=== PATIENT | male | born 1950 | race Hispanic/Latino ===

== ENCOUNTER 2016-08-26 07:56 | Day surgery (SDC) | payer MEDICARE ==
[2016-08-20 08:28] VITALS: BMI 28.7
[2016-08-26] MEDS ORDERED: Bupivacaine 0.5% Inj(30mL) ONE (08:52)
[2016-08-26 09:04] VITALS: RESP 18
[2016-08-26] MEDS ORDERED: Midazolam 2 MG/2 ML VIAL ONE (10:12)
[2016-08-26] MEDS ORDERED: Propofol 10 mg/ml Inj (20 ML) ONE (10:12)
[2016-08-26] MEDS ORDERED: ePHEDrine 50 mg/ml Inj ONE (10:12)
[2016-08-26] MEDS ORDERED: HYDROmorphone 0.5 mg/0.5 ml ISec IVP PRN (11:34)
[2016-08-26] MEDS ORDERED: Lactated Ringer's 1,000 ML IV SCH (11:34)
--- NOTE | 2016-08-26 12:15 | PCM.SURG1 ---
Surgeon's Initial Post Op Note - Surgeon's Notes Surgeon: Dr. Virk Electrical Automation Engineer: Dr. Bella Type of Anesthesia: General LMA, Local Pre-Operative Diagnosis: left inguinal hernia Operative Findings: see operative report Post-Operative Diagnosis: left inguinal hernia Operation Performed: left inguinal hernia repair with mesh, left ilioinguinal neurectomy Specimen/Specimens Removed: cord lipoma, nerve segment Estimated Blood Loss: EBL {In ML}: 10 Blood Products Given: N/A Drains Used: No Drains Post-Op Condition: Good Date of Surgery/Procedure: 08/26/16 Time of Surgery/Procedure: 12:14
[2016-08-26] MEDS ORDERED: Albuterol HFA 90 mcg/actuation (8 g) ONE (12:43)
[2016-08-26 13:37] VITALS: TEMP 97.7
[2016-08-26 14:10] VITALS: BP 158/72; PULSE 68; O2SAT 99
--- NOTE | 2016-08-26 14:59 | OP ---
PROCEDURE DATE: 08/26/2016 PREOPERATIVE DIAGNOSES: Left inguinal hernia, left groin pain extending to the left thigh. POSTOPERATIVE DIAGNOSES: Left inguinal hernia, left groin pain extending to the left thigh and entra pped left ilioinguinal nerve. SURGEON: Dr. Virk FERRYBOAT TICKET TAKER: Dr. Bella ANESTHESIOLOGIST: Dr. Rodriguez ANESTHESIA: General LMA. ESTIMATED BLOOD LOSS: Minimal. PROCEDURES PERFORMED: 1. Left inguinal hernia repair with mesh. 2. Left ilioinguinal neurectomy. The patient is a 66-year-old male with history of left groin bulge associated with tenderness and dis comfort. He was examined and was noted to have a left inguinal hernia as well as small right inguina l hernia and was scheduled for the repair of the left inguinal hernia due to the pain extending into his left thigh. The patient was brought to the operating room and placed on the operating table in a supine position. The patient was connected to EKG, blood pressure and pulse oximeter monitors. The patient then und erwent general LMA anesthesia and was prepped and draped in the usual sterile fashion. First, standard timeout proceeded took place and everybody in the room agreed as to the patient's mo ntity, diagnosis and procedure to be performed. Using lidocaine mixed with Marcaine, the area of incision was infiltrated and a skin incision was mad e using a #15 blade. Once the incision was carried through the subcutaneous tissue, I then carefully dissected out using electrocautery. External oblique aponeurosis was exposed and incised along its fibers using a #15 blade. The spermatic cord with its structures were then carefully elevated off it s floor and were noted to have a large cord lipoma as well as a hernia sac. This was carefully disse cted out. The cord lipoma was ligated at its base and excised and sent as a specimen. The hernia ap peared to contain small bowel with some adhesions within the hernia. Therefore, a decision was made to proceed with reduction of the hernia into the abdominal cavity without resecting the sac. The sac itself was incised and reduced slightly while being closed. Once this was completed, the internal r ing of the inguinal canal carefully dissected out and preperitoneal space was mobilized. PHS hernia mesh was placed into the internal ring defect and the posterior leaf was placed in the preperitoneal space and the anterior leaf of the mesh was then placed flatly on the floor of the inguinal canal ext ending from the pubic tubercle down to behind the exit site of the spermatic cord. During the dissec tion of the cord structures, the ilioinguinal nerve, which was lying on top of the cord and was incor porated into the scar tissue extending around the cord structures itself, had to be sacrificed in ord er to avoid postoperative neuralgia. The ilioinguinal nerve was then clamped proximal and distally a nd the middle portion of it was sent as a specimen. Now, the plug was sutured to the edges of the tr ansversalis fascia and inguinal ligament using 0 Vicryl stitches. The external oblique aponeurosis w as sutured together using 3-0 Vicryl and 60 mg total with a mixture of lidocaine and Marcaine were in jected in the area of the distal aspect laterally to the exit site of the spermatic cord in order to give better anesthesia. Once this was done, the Jan's fascia was closed using 3-0 Vicryl and so w as external oblique aponeurosis. The subcutaneous tissues were closed using 3-0 Vicryl and the skin was closed using 4-0 Monocryl. A sterile Dermabond dressing was applied to the wound. The patient t olerated the procedure well and there were no complications. The patient was awakened and transferre d to the recovery room for further observation. Amadou Virk MD cc: [id number] TT: 08/26/2016 14:58:15 en
== END 2016-08-26 15:10 | disposition home or self-care (01) ==
LOC: SDS 07:56
PROVIDERS: ATTEND General Practice
DX: K40.90 Unilateral inguinal hernia, without obstruction or gangrene, not specified as recurrent (principal); D17.6 Benign lipomatous neoplasm of spermatic cord
CPT/HCPCS: 49505; 55520; 64999; 88302; 88304; C1781; J0690; J1100; J1170; J1885; J2001; J2250; J2405; J2704; J3010; J7120 ×2